=== PATIENT | female | born 1945 ===

== ENCOUNTER 2020-06-30 06:58 | Day surgery (SDC) | payer OTHER ==
[~2020-06-30 06:58] MED LIST: ADVIL200 MG PO; CIPRO500 MG PO; ENALAPRIL MALEA20 MG PO; HYDROCHLOROTHIA25 MG PO
== END 2020-06-30 17:50 | disposition home or self-care (01) ==
LOC: CIR.AMB 06:58
PROVIDERS: ATTEND Obstetrics & Gynecology
DX: N87.0 Mild cervical dysplasia (principal); N72 Inflammatory disease of cervix uteri; N95.0 Postmenopausal bleeding; Z20.822 Contact with and (suspected) exposure to COVID-19